=== PATIENT | female | born 2000 | race African-American/Black ===

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

== ENCOUNTER 2019-01-31 15:58 | Emergency (ER) | payer MEDICAID ==
[~2019-01-31] VITALS: Ht 172.7 cm; Wt 79.4 kg
[2019-01-31 16:14] VITALS: BP 129/63
--- NOTE | 2019-01-31 16:15 | NUR ---
C/O DIFFUSE ABDOMINAL PAIN, & N/V X1 DAY. LBM 01/30/19, ABDOMEN SOFT,FLAT, TENDER TO PALPATION. HYPERACTIVE BOWEL SOUNDS X4. PT STATES SHE HASNT EATEN IN 2 DAYS DUE TO NAUSEA. SKIN IS INTACT/WARM/DRY; AAOX4, PERRL, WITH EVEN AND STEADY GAIT; LUNGS CLEAR BL, BREATHING UNLABORED; HR EVEN AND REGULAR, VSS; PATIENT POSITIONED FOR COMFORT; HOB ELEVATED; BEDRAILS UP X1; BED DOWN.
--- NOTE | 2019-01-31 16:41 | NUR ---
PATIENT AMBULATED TO BED #3
--- NOTE | 2019-01-31 17:08 | NUR ---
SEIZURE PRECAUTIONS IN PLACE. PT REPORTS SHE HAS SEIZURES PRIMARILY AT NIGHTTIME AND TAKES KEPPRA AT HOME FOR THEM.
--- NOTE | 2019-01-31 17:13 | NUR ---
Dr. Judge evaluating patient at bedside.
[2019-01-31] MEDS ORDERED: NACL 0.9% 1,000 ML IV SCH (17:21)
[2019-01-31] MEDS ORDERED: NACL 0.9% 1,000 ML IV ONE (17:21)
[2019-01-31] MEDS ORDERED: ONDANSETRON 4 MG/2 ML VIAL IVP ONE (17:25)
[2019-01-31] MEDS ORDERED: PROMETHAZINE 25 MG/ML VIAL IM ONE (17:25)
[2019-01-31] MEDS ORDERED: KETOROLAC 30 MG/ML VIAL IVP ONE (17:25)
[2019-01-31] MEDS ORDERED: MORPHINE SULFATE 4 MG/ML SYR IVP ONE (17:25)
[2019-01-31 17:41] LABS: APPEARANCE,URINE CLEAR (CLEAR); BILIRUBIN,URINE NEGATIVE (NEGATIVE); BLOOD, URINE NEGATIVE (NEGATIVE); COLOR,URINE YELLOW (YELLOW); LEUKOCYTE ESTERASE ,URINE NEGATIVE (NEGATIVE); NITRITE, URINE NEGATIVE (NEGATIVE); UGLUCOSE NEGATIVE (NEGATIVE)
[2019-01-31 17:52] LABS: BASOPHILS % (AUTO) 0.8 % (0.0-2.0); EOSINOPHILS # (AUTO) 0.1 K/uL (0-0.4); EOSINOPHILS % (AUTO) 2.3 % (0.0-4.0); HEMATOCRIT 37.8 % (36-48); HEMOGLOBIN 12.3 g/dL (12.0-16.0); LYMPHOCYTES # (AUTO) 1.4 K/uL (2.5-16.5); LYMPHOCYTES % (AUTO) 27.2 % (20.5-51.1); MEAN CORPUSCULAR HEMOGLOBIN 30 pg (27-31); MEAN CORPUSCULAR HGB CONC 33 g/dL (33-37); MEAN CORPUSCULAR VOLUME 91.9 fL (80-94); MONOCYTES # (AUTO) 0.4 K/uL (0.8-1.0); MONOCYTES % (AUTO) 7.5 % (1.7-9.3); NEUTROPHILS # (AUTO) 3.1 K/uL (1.8-7.7); NEUTROPHILS % (AUTO) 62.2 % (42.2-75.2); PLATELET COUNT (AUTO) 148 K/uL (140-450); RED BLOOD CELL COUNT(AUTO) 4.11 MIL/uL (4.20-5.40); RED CELL DISTRIBUTION WIDTH 14.1 % (11.6-13.7)
[2019-01-31 18:01] LABS: ANION GAP 12.7 (8-16); CARBON DIOXIDE 27.9 mmol/L (21-32); CREATININE 0.9 mg/dL (0.6-1.3); POTASSIUM 3.6 mmol/L (3.5-5.1)
[2019-01-31 18:03] LABS: BARBITURATE, URINE NEG. ng/ml (NEG <=200); BENZODIAZEPINE, URINE NEG. ng/mL (NEG <=200); CANNABINOID, URINE POS. ng/mL (NEG <=50); COCAINE, URINE NEG. ng/mL (NEG <=300); OPIATE, URINE NEG. ng/mL (NEG <=2000); PHENCYCLIDINE SCREEN,URINE NEG. ng/mL (NEG <=25)
[2019-01-31 18:07] LABS: ALBUMIN 3.8 g/dL (3.4-5.0); TOTAL BILIRUBIN 0.4 mg/dL (0.0-1.0)
--- NOTE | 2019-01-31 18:11 | NUR ---
PT LEFT TO CT
--- NOTE | 2019-01-31 18:18 | NUR ---
PT RETURNED FROM CT
--- NOTE | 2019-01-31 19:20 | NUR ---
Patient discharged with v/s stable. Written and verbal after care instructions given and explained. Patient alert, oriented and verbalized understanding of instructions. Ambulatory with steady gait. All questions addressed prior to discharge. ID band removed. Patient advised to follow up with PMD. Rx of COMPAZINE AND BENTYL given. Patient educated on indication of medication including possible reaction and side effects. Opportunity to ask questions provided and answered.
[2019-01-31 19:21] VITALS: BP 104/52
== END 2019-01-31 19:20 | disposition home or self-care (01) ==
LOC: MED 15:58
DX: F12.10 Cannabis abuse, uncomplicated (principal); K29.70 Gastritis, unspecified, without bleeding; R11.10 Vomiting, unspecified; Z79.899 Other long term (current) drug therapy
CPT/HCPCS: 36415; 74176; 80053; 80305; 81003; 81025; 82150; 83690; 85025; 96361; 96372; 96374; 96375; 99284; J1885; J2270; J2405; J2550; J7030

== ENCOUNTER 2019-04-01 22:06 | Emergency (ER) | payer MEDICAID ==
[~2019-04-01] VITALS: Ht 175.3 cm; Wt 78.5 kg
[2019-04-01 22:10] VITALS: BP 139/65
--- NOTE | 2019-04-01 22:10 | NUR ---
TO BED # 05 AMBULATORY
--- NOTE | 2019-04-01 22:30 | NUR ---
PT BIB BOYFRIEND C/O LOWER ABD PAIN AND NAUSEA X3 DAYS. PT STATE 8/10 CRAMPING PAIN, +TENDERNESS W/ PALP; ABD SOFT TO TOUCH, BOWEL SOUNDS ACTIVE THROUGH OUT. SAFETY PRECAUTIONS IMPLEMENTED. WILL CONTINUE TO MONITOR. PMH: DENIES
--- NOTE | 2019-04-01 22:39 | NUR ---
DR. SAVAGE BEDSIDE EVALUATING PT
[2019-04-01] MEDS ORDERED: NACL 0.9% 1,000 ML IV SCH (23:00)
[2019-04-01] MEDS ORDERED: PROMETHAZINE 25 MG/ML VIAL IVP ONE (23:00)
[2019-04-01] MEDS ORDERED: ALUMINUM HYD/MAG/SIMETHICONE 30 ML, DICYCLOMINE HCL LIQUID 20 MG, LIDOCAINE VISCOUS 2% ... PO ONE ×3 (23:00)
[2019-04-01 23:15] LABS: BASOPHILS % (AUTO) 0.5 % (0.0-2.0); EOSINOPHILS # (AUTO) 0.1 K/uL (0-0.4); EOSINOPHILS % (AUTO) 2.2 % (0.0-4.0); HEMOGLOBIN 11.9 g/dL (12.0-16.0); LYMPHOCYTES # (AUTO) 1.3 K/uL (2.5-16.5); LYMPHOCYTES % (AUTO) 20.6 % (20.5-51.1); MEAN CORPUSCULAR HEMOGLOBIN 30 pg (27-31); MEAN CORPUSCULAR HGB CONC 33 g/dL (33-37); MEAN CORPUSCULAR VOLUME 90.9 fL (80-94); MONOCYTES # (AUTO) 0.4 K/uL (0.8-1.0); MONOCYTES % (AUTO) 6.4 % (1.7-9.3); NEUTROPHILS # (AUTO) 4.6 K/uL (1.8-7.7); NEUTROPHILS % (AUTO) 70.3 % (42.2-75.2); PLATELET COUNT (AUTO) 153 K/uL (140-450); RED BLOOD CELL COUNT(AUTO) 3.96 MIL/uL (4.20-5.40); RED CELL DISTRIBUTION WIDTH 13.1 % (11.6-13.7); WHITE BLOOD COUNT (AUTO) 6.5 K/uL (4.5-11.0)
[2019-04-01 23:18] LABS: APPEARANCE,URINE CLEAR (CLEAR); BILIRUBIN,URINE NEGATIVE (NEGATIVE); BLOOD, URINE NEGATIVE (NEGATIVE); COLOR,URINE YELLOW (YELLOW); LEUKOCYTE ESTERASE ,URINE NEGATIVE (NEGATIVE); NITRITE, URINE NEGATIVE (NEGATIVE); UGLUCOSE NEGATIVE (NEGATIVE)
[2019-04-01 23:32] LABS: ALBUMIN 3.7 g/dL (3.4-5.0); ANION GAP 11.8 (8-16); CARBON DIOXIDE 24.6 mmol/L (21-32); CREATININE 0.9 mg/dL (0.6-1.3); POTASSIUM 3.4 mmol/L (3.5-5.1); TOTAL BILIRUBIN 0.3 mg/dL (0.0-1.0)
--- NOTE | 2019-04-02 | NUR ---
PT STATES SHE FEELS BETTER, DENIES PAIN AT THIS TIME. IV D/C TIP INTACT;PRESSURE AND BANDAGE APPLIED, BLEEDING CONTROLLED. SIGHT BENIGN.
[2019-04-02 00:39] VITALS: BP 120/60
--- NOTE | 2019-04-02 00:39 | NUR ---
Patient discharged with v/s stable. Written and verbal after care instructions given and explained. Patient alert, oriented and verbalized understanding of instructions. Ambulatory with steady gait. All questions addressed prior to discharge. ID band removed. Patient advised to follow up with PMD. Rx of Bentyl 20mg and Zofran ODT 4mg given. Patient educated on indication of medication including possible reaction and side effects. Opportunity to ask questions provided and answered.
== END 2019-04-02 00:39 | disposition home or self-care (01) ==
LOC: MED 22:06
DX: R11.2 Nausea with vomiting, unspecified (principal); K52.9 Noninfective gastroenteritis and colitis, unspecified; G40.909 Epilepsy, unspecified, not intractable, without status epilepticus; Z79.899 Other long term (current) drug therapy
CPT/HCPCS: 36415; 80053; 81003; 82150; 83690; 85025; 96361; 96374; 99283; J2550; J7030

== ENCOUNTER 2019-04-06 14:38 | Emergency (ER) | payer MEDICAID ==
[~2019-04-06] VITALS: Ht 175.3 cm; Wt 81.6 kg
[2019-04-06 14:53] VITALS: BP 121/51
[2019-04-06 16:08] VITALS: BP 121/51
--- NOTE | 2019-04-06 16:08 | NUR ---
Patient discharged with v/s stable. Written and verbal after care instructions given and explained. Patient verbalized understanding. Ambulatory with steady gait. All questions addressed prior to discharge. Advised to follow up with PMD. pt given gauze to go home with.
== END 2019-04-06 16:08 | disposition home or self-care (01) ==
LOC: MED 14:38
DX: L02.31 Cutaneous abscess of buttock (principal); G40.909 Epilepsy, unspecified, not intractable, without status epilepticus; Z79.899 Other long term (current) drug therapy
CPT/HCPCS: 99283

== ENCOUNTER 2019-06-05 23:38 | Emergency (ER) | payer MEDICAID ==
[~2019-06-05] VITALS: Ht 170.2 cm; Wt 81.2 kg
[2019-06-05 23:45] VITALS: BP 126/57
--- NOTE | 2019-06-05 23:52 | NUR ---
PT AMBULATED TO BED
--- NOTE | 2019-06-06 | NUR ---
18Y FEMALE, PRESENTED TO ED C/O ABD PAIN FOR 1.5WEEKS 10/10NOW THAT RADIATES TO LT SIDE OF BACK. PT ALSO C/O DIZZINESS. REPORTS OF TAKING IBUPROFEN FOR PAIN BUT INEFFECTIVE. +NAUSEA, NO VOMITING/DIARRHEA. PT AAOX4, GCS 15, RR EVEN UNLABORED, ED MD DR. STRAUSS MADE AWARE, WILL CONTINUE TO MONITOR CLOSELY. BED LOCKED IN LOWEST POSITION, SIDERAILS UPX1.
[2019-06-06] MEDS ORDERED: KETOROLAC 30 MG/ML VIAL IVP ONE (00:05)
[2019-06-06] MEDS ORDERED: NACL 0.9% 1,000 ML IV ONE (00:05)
[2019-06-06] MEDS ORDERED: ONDANSETRON 4 MG/2 ML VIAL IVP ONE (00:05)
[2019-06-06 00:27] LABS: BASOPHILS % (AUTO) 0.3 % (0.0-2.0); EOSINOPHILS # (AUTO) 0.2 K/uL (0-0.4); EOSINOPHILS % (AUTO) 2.3 % (0.0-4.0); HEMATOCRIT 35.9 % (36-48); HEMOGLOBIN 11.8 g/dL (12.0-16.0); LYMPHOCYTES # (AUTO) 1.9 K/uL (2.5-16.5); LYMPHOCYTES % (AUTO) 25.1 % (20.5-51.1); MEAN CORPUSCULAR HEMOGLOBIN 30 pg (27-31); MEAN CORPUSCULAR HGB CONC 33 g/dL (33-37); MEAN CORPUSCULAR VOLUME 90.2 fL (80-94); MONOCYTES # (AUTO) 0.4 K/uL (0.8-1.0); MONOCYTES % (AUTO) 5.5 % (1.7-9.3); NEUTROPHILS % (AUTO) 66.8 % (42.2-75.2); PLATELET COUNT (AUTO) 161 K/uL (140-450); RED BLOOD CELL COUNT(AUTO) 3.98 MIL/uL (4.20-5.40); RED CELL DISTRIBUTION WIDTH 13.6 % (11.6-13.7); WHITE BLOOD COUNT (AUTO) 7.5 K/uL (4.5-11.0)
[2019-06-06 00:31] LABS: APPEARANCE,URINE CLEAR (CLEAR); BILIRUBIN,URINE NEGATIVE (NEGATIVE); BLOOD, URINE NEGATIVE (NEGATIVE); COLOR,URINE YELLOW (YELLOW); LEUKOCYTE ESTERASE ,URINE NEGATIVE (NEGATIVE); NITRITE, URINE NEGATIVE (NEGATIVE); UGLUCOSE NEGATIVE (NEGATIVE)
[2019-06-06 00:39] LABS: RBC,URINE 0-5 /HPF (0-5); WBC,URINE 0-5 /HPF (0-5)
[2019-06-06 00:42] LABS: ANION GAP 11.3 (8-16); CARBON DIOXIDE 26.9 mmol/L (21-32); CREATININE 0.9 mg/dL (0.6-1.3); POTASSIUM 3.2 mmol/L (3.5-5.1)
[2019-06-06 00:50] LABS: ALBUMIN 3.3 g/dL (3.4-5.0); TOTAL BILIRUBIN 0.3 mg/dL (0.0-1.0)
[2019-06-06] MEDS ORDERED: POTASSIUM CHLORIDE 10 MEQ TABER PO ONE (00:55)
[2019-06-06 02:08] VITALS: BP 126/61
--- NOTE | 2019-06-06 02:09 | NUR ---
Patient discharged with v/s stable. Written and verbal after care instructions given and explained. Patient alert, oriented and verbalized understanding of instructions. Ambulatory with steady gait. All questions addressed prior to discharge. ID band removed. Patient advised to follow up with PMD. Rx of REGLAN given. Patient educated on indication of medication including possible reaction and side effects. Opportunity to ask questions provided and answered.
== END 2019-06-06 02:09 | disposition home or self-care (01) ==
LOC: MED 23:38
DX: O21.8 Other vomiting complicating pregnancy (principal); O99.281 Endocrine, nutritional and metabolic diseases complicating pregnancy, first trimester; E87.6 Hypokalemia; Z3A.01 Less than 8 weeks gestation of pregnancy; Z79.899 Other long term (current) drug therapy; Z86.69 Personal history of other diseases of the nervous system and sense organs
CPT/HCPCS: 36415; 76817; 80053; 81001; 81025; 83690; 84702; 85025; 96361; 96374; 96375; 99284; J1885; J2405; J7030; Q0092

== ENCOUNTER 2019-07-01 10:23 | Emergency (ER) | payer MEDICAID ==
[~2019-07-01] VITALS: Ht 175.3 cm; Wt 77.7 kg
[2019-07-01 10:53] VITALS: BP 124/75
[2019-07-01 12:14] LABS: BASOPHILS % (AUTO) 0.4 % (0.0-2.0); EOSINOPHILS # (AUTO) 0.1 K/uL (0-0.4); HEMATOCRIT 36.7 % (36-48); LYMPHOCYTES # (AUTO) 1.5 K/uL (2.5-16.5); LYMPHOCYTES % (AUTO) 22.2 % (20.5-51.1); MEAN CORPUSCULAR HEMOGLOBIN 30 pg (27-31); MEAN CORPUSCULAR HGB CONC 33 g/dL (33-37); MEAN CORPUSCULAR VOLUME 90.4 fL (80-94); MONOCYTES # (AUTO) 0.3 K/uL (0.8-1.0); MONOCYTES % (AUTO) 4.9 % (1.7-9.3); NEUTROPHILS # (AUTO) 4.6 K/uL (1.8-7.7); NEUTROPHILS % (AUTO) 70.5 % (42.2-75.2); PLATELET COUNT (AUTO) 158 K/uL (140-450); RED BLOOD CELL COUNT(AUTO) 4.06 MIL/uL (4.20-5.40); RED CELL DISTRIBUTION WIDTH 13.4 % (11.6-13.7); WHITE BLOOD COUNT (AUTO) 6.5 K/uL (4.5-11.0)
[2019-07-01 12:33] LABS: APPEARANCE,URINE CLOUDY (CLEAR); BILIRUBIN,URINE 1+ (NEGATIVE); BLOOD, URINE NEGATIVE (NEGATIVE); COLOR,URINE YELLOW (YELLOW); LEUKOCYTE ESTERASE ,URINE NEGATIVE (NEGATIVE); NITRITE, URINE NEGATIVE (NEGATIVE); PH,URINE 6.5 (5.0-9.0); UGLUCOSE NEGATIVE (NEGATIVE)
[2019-07-01 13:00] LABS: ANION GAP 13.4 (8-16); CARBON DIOXIDE 23.2 mmol/L (21-32); CREATININE 0.8 mg/dL (0.6-1.3); POTASSIUM 3.6 mmol/L (3.5-5.1)
[2019-07-01 13:02] LABS: RBC,URINE NONE SEEN /HPF (0-5); WBC,URINE 0-5 /HPF (0-5)
[2019-07-01 13:04] LABS: ALBUMIN 3.5 g/dL (3.4-5.0); TOTAL BILIRUBIN 0.3 mg/dL (0.0-1.0)
[2019-07-01] MEDS: METOCLOPRAMIDE 10 MG/2 ML INJ VIAL IVP ONE (15:48)
[2019-07-01] MEDS: diphenhydrAMINE 50 MG/ML VIAL IVP ONE (15:50)
[2019-07-01] MEDS: NACL 0.9% 1,000 ML IV ONE (15:51)
[2019-07-01] MEDS: CEPHALEXIN 500 MG CAP PO ONE (16:45)
[2019-07-01 16:50] VITALS: BP 124/63
== END 2019-07-01 16:50 | disposition home or self-care (01) ==
LOC: MED 10:23
DX: O98.811 Other maternal infectious and parasitic diseases complicating pregnancy, first trimester (principal); O26.891 Other specified pregnancy related conditions, first trimester; R82.71 Bacteriuria; R10.10 Upper abdominal pain, unspecified; G40.909 Epilepsy, unspecified, not intractable, without status epilepticus; Z3A.10 10 weeks gestation of pregnancy; Z79.899 Other long term (current) drug therapy
CPT/HCPCS: 36415; 76801; 80053; 81001; 81025; 84702; 85025; 86901; 96374; 96375; 99284; J1200; J2765; J7030; Q0092

== ENCOUNTER 2019-11-19 16:10 | Emergency (ER) | payer MEDICAID ==
[~2019-11-19] VITALS: Ht 170.2 cm; Wt 81.2 kg
[2019-11-19 16:35] VITALS: BP 126/75
[2019-11-19 17:34] LABS: APPEARANCE,URINE CLEAR (CLEAR); BILIRUBIN,URINE NEGATIVE (NEGATIVE); BLOOD, URINE NEGATIVE (NEGATIVE); COLOR,URINE YELLOW (YELLOW); LEUKOCYTE ESTERASE ,URINE NEGATIVE (NEGATIVE); NITRITE, URINE NEGATIVE (NEGATIVE); PH,URINE 6.5 (5.0-9.0); UGLUCOSE NEGATIVE (NEGATIVE)
--- NOTE | 2019-11-19 18:32 | NUR ---
CALLED PT'S NAME IN LOBBY--NO RESPONSE.
--- NOTE | 2019-11-19 18:44 | NUR ---
CALLED PT'S NAME IN LOBBY--NO RESPONSE.
--- NOTE | 2019-11-19 20:15 | NUR ---
PT AMBULATED TO ER BED 05
--- NOTE | 2019-11-19 20:23 | NUR ---
19 Y/O F C/O LUMP RT SIDE OF LABIA X 6 DAYS. PT STATES THE LUMP OPENED UP TODAY, DRAINED CLEAR FLUID. PT STATES PAIN 7/10 WITH THE OPEN WOUND. PT POSITIONED FOR COMFORT, SIDE RAIL X1 IN PLACE, BED LOWERED. NKA
--- NOTE | 2019-11-19 20:45 | NUR ---
FEMALE CHAPERONED DR. GARDNER FOR VAGINAL EXAMINATION.
[2019-11-19] MEDS ORDERED: LIDOCAINE MPF 1% 10 MG/ML VIAL INJ ONE (20:50)
[2019-11-19] MEDS ORDERED: LIDOCAINE JELLY 2% 30 ML TUBE TP ONE (20:50)
--- NOTE | 2019-11-19 21:34 | NUR ---
REPORT GIVEN TO CHINMAY GARCIA FOR CHANGE OF SHIFT.
--- NOTE | 2019-11-19 22:00 | NUR ---
DR GARDNER AT BEDSIDE. DRAINING ABSCESS. RN AT BEDSIDE.
[2019-11-19] MEDS ORDERED: IBUPROFEN 800 MG TAB PO ONE (22:10)
[2019-11-19] MEDS ORDERED: HYDROcodone/APAP 5/325 MG 1 TAB TAB PO ONE (22:10)
--- NOTE | 2019-11-19 22:27 | NUR ---
PT GIVEN MOTRIN 800MG AND NORCO 5/325MG FOR 10/10 VAGINAL PAIN S/P DRAINAGE. PT STATED SHE HAS A RIDE COMING TO PICK HER UP AND DRIVE HER HOME.
[2019-11-19 22:50] VITALS: BP 118/86
--- NOTE | 2019-11-19 22:50 | NUR ---
Patient discharged with v/s stable. Written and verbal after care instructions given and explained. Patient alert, oriented and verbalized understanding of instructions. Ambulatory with steady gait. All questions addressed prior to discharge. ID band removed. Patient advised to follow up with PMD. Rx of BACTRIM, KEFLEX, MOTRIN, NORCO given. Patient educated on indication of medication including possible reaction and side effects. Opportunity to ask questions provided and answered.
[2019-11-23 06:07] LABS: CHLAMYDIA TRACHOMATIS AMP DNA Negative (Negative)
== END 2019-11-19 22:50 | disposition home or self-care (01) ==
LOC: MED 16:10
DX: N76.4 Abscess of vulva (principal); G40.909 Epilepsy, unspecified, not intractable, without status epilepticus; Z79.899 Other long term (current) drug therapy
CPT/HCPCS: 36415; 56405; 81003; 81025; 87210; 87491; 99284; J2001

== ENCOUNTER 2020-07-22 20:47 | Emergency (ER) | payer SELFPAY ==
[~2020-07-22] VITALS: Ht 172.7 cm; Wt 80.3 kg
[2020-07-22 20:52] VITALS: BP 125/75
--- NOTE | 2020-07-22 20:55 | NUR ---
PT TAKEN TO BED 05 WITH STEADY GAIT.
--- NOTE | 2020-07-22 21:08 | NUR ---
20 Y/O FEMALE C/O MID ABD PAIN RADIATING TO LOWER BACK X 1 WEEK ACCOMPANIED BY NAUSEA. PT STATES 9/10 SHARP PAIN. DENIES VOMITING/DIARRHEA. ABD SOFT, TENDER TO TOUCH. LUNG SOUNDS CLEAR. VSS. MHX: EPILEPSY ALLERGIES: NKA
--- NOTE | 2020-07-22 21:19 | NUR ---
PT STATING SHE IS UNABLE TO PROVIDE URINE AT THIS TIEME. ERMD MADE AWARE. PER ELLEN OKAY TO GIVE A CUP OF WATER AT THIS TIME.
[2020-07-22] MEDS ORDERED: ONDANSETRON 4 MG ODT PO ONE (21:20)
--- NOTE | 2020-07-22 21:29 | NUR ---
Dr. Mishra examining patient.
[2020-07-22] MEDS ORDERED: KETOROLAC 30 MG/ML VIAL IVP ONE (21:35)
[2020-07-22 21:47] LABS: APPEARANCE,URINE CLEAR (CLEAR); BILIRUBIN,URINE NEGATIVE (NEGATIVE); BLOOD, URINE NEGATIVE (NEGATIVE); COLOR,URINE DARK YELLOW (YELLOW); LEUKOCYTE ESTERASE ,URINE NEGATIVE (NEGATIVE); NITRITE, URINE NEGATIVE (NEGATIVE); UGLUCOSE NEGATIVE (NEGATIVE)
--- NOTE | 2020-07-22 21:50 | NUR ---
PT TAKEN TO CT SCAN VIA W/C
[2020-07-22 21:57] LABS: BASOPHILS # (AUTO) 0.1 K/uL (0.00-0.22); BASOPHILS % (AUTO) 1.2 % (0.0-2.0); EOSINOPHILS # (AUTO) 0.2 K/uL (0-0.4); EOSINOPHILS % (AUTO) 2.7 % (0.0-4.0); HEMATOCRIT 36.3 % (36-48); HEMOGLOBIN 11.9 g/dL (12.0-16.0); LYMPHOCYTES # (AUTO) 2.1 K/uL (2.5-16.5); LYMPHOCYTES % (AUTO) 33.1 % (20.5-51.1); MEAN CORPUSCULAR HEMOGLOBIN 29 pg (27-31); MEAN CORPUSCULAR HGB CONC 33 g/dL (33-37); MEAN CORPUSCULAR VOLUME 87.2 fL (80-94); MONOCYTES # (AUTO) 0.5 K/uL (0.8-1.0); MONOCYTES % (AUTO) 7.8 % (1.7-9.3); NEUTROPHILS # (AUTO) 3.5 K/uL (1.8-7.7); NEUTROPHILS % (AUTO) 55.2 % (42.2-75.2); PLATELET COUNT (AUTO) 160 K/uL (140-450); RED BLOOD CELL COUNT(AUTO) 4.17 MIL/uL (4.20-5.40); RED CELL DISTRIBUTION WIDTH 15.7 % (11.6-13.7); WHITE BLOOD COUNT (AUTO) 6.3 K/uL (4.8-10.8)
--- NOTE | 2020-07-22 21:58 | NUR ---
PT RETURNED FROM CT SCAN
[2020-07-22 22:13] LABS: ALBUMIN 3.9 g/dL (3.4-5.0); ANION GAP 12.8 (8-16); CARBON DIOXIDE 24.8 mmol/L (21-32); POTASSIUM 3.6 mmol/L (3.5-5.1); TOTAL BILIRUBIN 0.3 mg/dL (0.0-1.0)
[2020-07-22 23:09] VITALS: BP 125/75
--- NOTE | 2020-07-22 23:09 | NUR ---
Patient discharged with v/s stable. Written and verbal after care instructions given and explained. Patient alert, oriented and verbalized understanding of instructions. Ambulatory with steady gait. All questions addressed prior to discharge. ID band removed, IV Discontinued. Patient advised to follow up with PMD. Rx of ZOFRAN, MOTRIN AND NORCO given. Patient educated on indication of medication including possible reaction and side effects. Opportunity to ask questions provided and answered.
== END 2020-07-22 23:09 | disposition home or self-care (01) ==
LOC: MED 20:47
DX: R10.9 Unspecified abdominal pain (principal); R11.0 Nausea; R56.9 Unspecified convulsions
CPT/HCPCS: 36415; 74176; 80053; 81003; 81025; 83690; 85025; 96374; 99284; J1885; Q0162

== ENCOUNTER 2020-08-20 14:56 | Emergency (ER) | payer MEDICAID ==
[~2020-08-20] VITALS: Ht 172.7 cm; Wt 76.7 kg
[2020-08-20 15:18] VITALS: BP 131/70
--- NOTE | 2020-08-20 15:22 | NUR ---
PT AMBULATED TO BED 05
--- NOTE | 2020-08-20 15:29 | NUR ---
20 YEAR OLD FEMALE COMPLAINS OF LEFT KNEE PAIN X YESTERDAY. PT STATES THAT SHE TRIPPED OVER SOMETHING AND FELT A POP AND TWIST. LEFT EXTREMITY PEDAL PULSE +3, CAP REFILL<3, ROM. PT HAS SOME DIFFICULTY WALKING ON LEG. PT AOX4, BREATHING EVEN AND UNLABORED, SKIN WARM AND DRY. BED IN LOWEST POSITION, LOCKED, BED RAIL UPX1. PMH - EPILEPSY ALLERGIES - NKA
[2020-08-20] MEDS ORDERED: KETOROLAC 30 MG/ML VIAL IM ONE (16:05)
[2020-08-20 17:00] VITALS: BP 131/70
--- NOTE | 2020-08-20 17:06 | NUR ---
APPLIED LUIS WRAP TO LEFT KNEE WITHOUT ANY ISSUES AND PT DEMONSTRATED PROPER USE OF CRUTCHES WITHOUT ANY ISSUES
--- NOTE | 2020-08-20 18:20 | NUR ---
Patient discharged with v/s stable. Written and verbal after care instructions given and explained. Patient alert, oriented and verbalized understanding of instructions. Ambulatory with steady gait. All questions addressed prior to discharge. ID band removed. Patient advised to follow up with PMD. Rx of NAPROSYN AND ROBAXIN given. Patient educated on indication of medication including possible reaction and side effects. Opportunity to ask questions provided and answered.
== END 2020-08-20 18:20 | disposition home or self-care (01) ==
LOC: MED 14:56
DX: M25.562 Pain in left knee (principal); G40.909 Epilepsy, unspecified, not intractable, without status epilepticus; Z79.899 Other long term (current) drug therapy
CPT/HCPCS: 73562; 96372; 99283; J1885

== ENCOUNTER 2020-09-25 20:25 | Emergency (ER) | payer MEDICAID ==
[~2020-09-25] VITALS: Ht 175.3 cm; Wt 72.6 kg
[2020-09-25 21:05] VITALS: BP 131/75
--- NOTE | 2020-09-25 21:05 | NUR ---
TO TENT # 02 AMBULATORY
--- NOTE | 2020-09-25 21:30 | NUR ---
PT ASSESSMENT COMPLETE BY ERMD , NO NURSING INTERVENTIONS NEEDED.
[2020-09-25] MEDS ORDERED: ONDANSETRON 4 MG ODT PO ONE (21:40)
[2020-09-25] MEDS ORDERED: HYDROcodone/APAP 5/325 MG 1 TAB TAB PO ONE (21:40)
--- NOTE | 2020-09-25 22:00 | NUR ---
JOANNE NOVEL SWAB COLLECTED AND HANDED TO LAB.
[2020-09-25 22:07] VITALS: BP 131/75
--- NOTE | 2020-09-25 22:07 | NUR ---
Patient discharged with v/s stable. Written and verbal after care instructions given and explained. Patient alert, oriented and verbalized understanding of instructions. Ambulatory with steady gait. All questions addressed prior to discharge. ID band removed. Patient advised to follow up with PMD. Rx of VENTOLIN , PREDNISONE,ZOFRAN &AZITHROMYCIN given. Patient educated on indication of medication including possible reaction and side effects. Opportunity to ask questions provided and answered.
--- NOTE | 2020-09-28 00:19 | NUR ---
Positive COVID-19 test results were received from lab. A copy of the test results were given to Infection Control.
== END 2020-09-25 22:07 | disposition home or self-care (01) ==
LOC: MED 20:25
DX: M79.10 Myalgia, unspecified site (principal); Z20.828 Contact with and (suspected) exposure to other viral communicable diseases; F17.210 Nicotine dependence, cigarettes, uncomplicated; Z71.6 Tobacco abuse counseling
CPT/HCPCS: 99283; U0003; 81025; Q0162

== ENCOUNTER 2022-03-16 15:19 | Emergency (ER) | payer MEDICAID ==
[~2022-03-16] VITALS: Ht 175.3 cm; Wt 71.4 kg
[2022-03-16 15:33] VITALS: BP 140/70
[2022-03-16] MEDS ORDERED: BACTO TP (16:08)
[2022-03-16] MEDS ORDERED: IBUP-2213 PO (16:08)
[2022-03-16] MEDS ORDERED: CEPH-588 PO (16:08)
[2022-03-16] MEDS ORDERED: SULF-58 PO (16:08)
[2022-03-16 19:39] VITALS: BP 140/70
== END 2022-03-16 19:41 | disposition home or self-care (01) ==
LOC: MED 15:19
DX: L03.115 Cellulitis of right lower limb (principal); R21 Rash and other nonspecific skin eruption; R03.0 Elevated blood-pressure reading, without diagnosis of hypertension; Z86.69 Personal history of other diseases of the nervous system and sense organs; Z79.1 Long term (current) use of non-steroidal anti-inflammatories (NSAID); Z79.2 Long term (current) use of antibiotics; Z79.899 Other long term (current) drug therapy
CPT/HCPCS: 99283

== ENCOUNTER 2024-03-26 13:11 | Emergency (ER) | payer MEDICAID ==
[~2024-03-26] VITALS: Ht 175.3 cm; Wt 68.0 kg
[~2024-03-26 13:11] MED LIST changes: +BACTO TP; +CEPH-588 PO; +IBUP-2213 PO; +SULF-58 PO
[2024-03-26 13:17] VITALS: BP 119/73; PULSE 92; RESP 16; TEMP 97.6; O2SAT 99
[2024-03-26] MEDS: IBUPROFEN 600 MG TAB PO ONE (15:59)
[2024-03-26] MEDS ORDERED: DIPH25TA53 PO (16:18)
[2024-03-26 16:33] VITALS: BP 129/64; PULSE 72; RESP 18; TEMP 97.3; O2SAT 96
== END 2024-03-26 16:30 | disposition home or self-care (01) ==
LOC: MED 13:11
DX: T63.2X1A Toxic effect of venom of scorpion, accidental (unintentional), initial encounter (principal); Z86.69 Personal history of other diseases of the nervous system and sense organs; Z79.899 Other long term (current) drug therapy; Y92.89 Other specified places as the place of occurrence of the external cause
CPT/HCPCS: 90471; 90715; 99283; Q0163